=== PATIENT | female | born 1965 | race Asian ===

== ENCOUNTER → 2016-12-15 | Outpatient (CLI) | payer OTHER | LOC: FIMAGING 14:31 | DX: Z12.31 Encounter for screening mammogram for malignant neoplasm of breast (principal) | CPT/HCPCS: G0202 ==

== ENCOUNTER → 2017-12-20 | Outpatient (CLI) | payer OTHER | LOC: FIMAGING 10:35 | DX: Z12.31 Encounter for screening mammogram for malignant neoplasm of breast (principal) ==

== ENCOUNTER → 2019-01-01 | Outpatient (CLI) | payer OTHER | LOC: FIMAGING 09:43 | PROVIDERS: ATTEND Obstetrics & Gynecology | DX: Z12.31 Encounter for screening mammogram for malignant neoplasm of breast (principal) ==